=== PATIENT | female | born 1990 | race African-American/Black ===

== ENCOUNTER 2016-06-26 21:57 | Emergency (ER) | payer BC, OTHER ==
[~2016-06-26] VITALS: Ht 154.9 cm; Wt 56.7 kg
[~2016-06-26 21:57] MED LIST: HYDROMORPHONE HC2 MG PO; JADENU90 MG PO
[2016-06-26 23:50] LABS: HEMATOCRIT 33.3 % (36.0-46.0); IMM.RETIC FRACTION 20.1 % (3-19); MCH 27.6 PG (29.0-34.0); MCHC 33.9 G/DL (30.0-36.0); MCV 81.2 FL (83-99); MEAN PLAT.VOLUME 8.6 uM^3 (9.5-12.4); PLATELET COUNT 196 K/uL (156-360); RBC DIS.WIDTH-SD 50.1 % (39-53); RETIC HGB EQUIVALENT 33.7 (28-36); RETICULOCYTE COUNT 7.6 % (0.5-1.8); WHITE BLOOD COUNT 10.5 K/uL (4.1-10.2)
[2016-06-26 23:57] LABS: CHLORIDE 106 mEq/L (99-109); POTASSIUM 3.5 mEq/L (3.7-5.4); SODIUM 140 mEq/L (136-147)
[2016-06-26 23:59] LABS: GLUCOSE 86 mg/dL (70-99)
[2016-06-27 00:01] LABS: ANION GAP 11 MEQ/L (2-14)
[2016-06-27 00:03] LABS: GFR ESTIMATE (CALCULATED) > 59 mL/min/
[2016-06-27 00:04] LABS: UREA NITROGEN (BUN) 7 mg/dL (9-23)
[2016-06-27 00:11] LABS: QUANTITATIVE HCG < 4.0 MIU/ML
[2016-06-27 02:06] LABS: ADD MIUA? YES; BILIRUBIN NEGATIVE; BLOOD SMALL; COLOR YELLOW ((YELLOW)); GLUCOSE (STRIP) NEGATIVE; KETONES 20; LEUKOCYTES NEGATIVE; NITRITE NEGATIVE; PROTEIN (STRIP) NEGATIVE; SPECIFIC GRAVITY 1.011 (1.000-1.030)
[2016-06-27 02:10] LABS: BACTERIA RARE /HPF; EPITHELIAL CELLS 1+ /HPF; MUCUS TRACE /LPF; RED BLOOD CELLS 0-5 /HPF (0-5); UCUL ADDED? NO; WHITE BLOOD CELLS 0-5 /HPF (0-5)
[2016-06-27] MEDS ORDERED: ZOFRAN4 MG PO (02:22)
[2016-06-27] MEDS ORDERED: DILAUDID2 MG PO (02:22)
[2016-06-27 02:29] VITALS: BP 108/61
== END 2016-06-27 03:11 | disposition home or self-care (01) ==
LOC: EME 21:57
PROVIDERS: Physician Assistant
DX: D57.00 Hb-SS disease with crisis, unspecified (principal); Z86.73 Personal history of transient ischemic attack (TIA), and cerebral infarction without residual deficits
CPT/HCPCS: 71020; 80048; 81003; 84702; 85027; 85045; 99281; 99285; J2270; J2405; J2765; J7030

== ENCOUNTER 2016-08-12 04:09 | Emergency (ER) | payer BC, OTHER ==
[~2016-08-12] VITALS: Ht 154.9 cm; Wt 59.7 kg
[~2016-08-12 04:09] MED LIST changes: +DILAUDID2 MG PO; +ZOFRAN4 MG PO
[2016-08-12] MEDS ORDERED: POLYMYXIN B-TMP10 ML LEFT EYE (04:57)
[2016-08-12 05:03] VITALS: BP 134/69
== END 2016-08-12 05:04 | disposition home or self-care (01) ==
LOC: EME 04:09
DX: H00.014 Hordeolum externum left upper eyelid (principal); D57.1 Sickle-cell disease without crisis
CPT/HCPCS: 99281; 99282

== ENCOUNTER 2016-10-20 13:49 | Emergency (ER) | payer BC, OTHER ==
[~2016-10-20] VITALS: Ht 154.9 cm; Wt 58.2 kg
[~2016-10-20 13:49] MED LIST changes: +POLYMYXIN B-TMP10 ML LEFT EYE
[2016-10-20 14:31] LABS: HEMATOCRIT 32.2 % (36.0-46.0); IMM.RETIC FRACTION 21.3 % (3-19); MCH 28.8 PG (29.0-34.0); MCHC 33.9 G/DL (30.0-36.0); MCV 85.2 FL (83-99); MEAN PLAT.VOLUME 9.1 uM^3 (9.5-12.4); PLATELET COUNT 154 K/uL (156-360); RBC DIS.WIDTH-SD 46.4 % (39-53); RED BLOOD COUNT 3.78 M/uL (3.80-5.20); RETIC HGB EQUIVALENT 31.3 (28-36); RETICULOCYTE COUNT 5.6 % (0.5-1.8); WHITE BLOOD COUNT 6.4 K/uL (4.1-10.2)
[2016-10-20 14:36] LABS: INTER. NORMALIZED RATIO 1.1; PROTHROMBIN TIME 12.6 SEC (10.2-12.9)
[2016-10-20 14:39] LABS: CHLORIDE 105 mEq/L (99-109); POTASSIUM 3.6 mEq/L (3.7-5.4); PTT 31.4 SEC (25-37); SODIUM 139 mEq/L (136-147)
[2016-10-20 14:41] LABS: GLUCOSE 97 mg/dL (70-99)
[2016-10-20 14:42] LABS: ANION GAP 10 MEQ/L (2-14)
[2016-10-20 14:45] LABS: GFR ESTIMATE (CALCULATED) > 59 mL/min/
[2016-10-20 14:46] LABS: UREA NITROGEN (BUN) 6 mg/dL (9-23)
[2016-10-20 19:02] VITALS: BP 109/61
== END 2016-10-20 19:37 | disposition home or self-care (01) ==
LOC: EME 13:49
PROVIDERS: Emergency Medicine; Nurse Practitioner Family
DX: D57.00 Hb-SS disease with crisis, unspecified (principal); Z86.73 Personal history of transient ischemic attack (TIA), and cerebral infarction without residual deficits
CPT/HCPCS: 71020; 80048; 81003; 83605; 85027; 85045; 85610; 85730; 87040; J1170; J1885; J2270; J2405; J7030; J7050